=== PATIENT | male | born 2005 | race Caucasian/White ===

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

== ENCOUNTER 2024-03-31 10:24 | Day surgery (SDC) | payer BC, SELFPAY ==
[2024-03-31] VITALS (11 sets, daily range): BP systolic 108–130; BP diastolic 51–83; PULSE 67–94; RESP 12–16; TEMP 36.1–36.8; O2SAT 98–100; BMI 24.8
[2024-03-31] MEDS: Lactated Ringers 1,000 ML 15 ML IV (10:58)
--- NOTE | 2024-03-31 10:58 | HP.PCM_ITS ---
History and Physical Date of Admission: 03/31/24 Intake Vital Signs 04/25/2209:14 02/03/2414:21 Height 5 ft 11 in 5 ft 11 in Weight: 188 lb BMI 26.2 BP 108/69 Blood Pressure Location Rt brachial Position Sitting Respiration 17 Pulse 63 Pulse Source Monitor Pulse Oximetry (%) 95 Oxygen Delivery Method room air Intake Visit Reasons: inguinal hernia Chief Complaint: inguinal hernia Is patient in pain?: No Allergies No Known Allergies Allergy (Verified 02/04/24 14:22) Medications ?Medication ?Instructions ?Recorded ?Confirmed ?Type albuterol sulfate 90 mcg/actuation 1 - 2 puff inhalation Q4H PRN Sob 05/05/20 02/04/24 History aerosol inhaler &/Or Wheezing fluticasone propionate 50 1 spray NASAL DAILY PRN Allergies 05/05/20 02/04/24 History mcg/actuation nasal spray,suspension aspirin 81 mg tablet,delayed 81 mg PO DAILY 02/04/24 02/04/24 History release pantoprazole 20 mg tablet,delayed 10 mg PO DAILY 02/04/24 02/04/24 History release sacubitril 24 mg-valsartan 26 mg 1 tab PO BID 02/04/24 02/04/24 History tablet (Entresto) PFSH Medical History (Updated 02/06/24 @ 13:[address] Syed Patton MD) Acid reflux Cardiomyopathy Surgical History (Updated 02/04/24 @ 14:20 by Imelda Briceño) Hx of tonsillectomy Family History (Updated 02/04/24 @ 14:21 by Imelda Briceño) Mother Thyroid disorderGrandmother Heart disease Thyroid disorder Social History (Updated 02/04/24 @ 14:21 by Imelda Briceño) Smoking Status: Never smoker alcohol intake: never substance use type: does not use HPI HPI HPI: Patient is a 18-year-old male here with right groin bulging and pain. He says this has been going on for several weeks. He says it hurts really badly especially with any ejaculation. ROS General General: No weight change, appetite, fatigue, colon cancer, breast cancer or weakness HEENT HEENT: No difficulty swallowing, eye injury, eye surgery, swollen glands or hoarseness Endo Endocrine: No thyroid disease, diabetes mellitus, thyroid cancer, Hair loss, heat intolerance or cold intolerance Skin Skin: No rash or changing moles Musc Musculoskeletal: No back problems, arthritis, rheumatoid arthritis, gout or joint pain Cardio Cardiovascular: Yes heart disease; No murmur, pacemaker, atrial fibrillation, high blood pressure, heart attack, heart stent, palpitations, shortness of breat with exertion or chest pain Psych Psychiatric: No depression, anxiety or hearing voices Resp Respiratory: No shortness of breath, No sleep apnea, No cough, No COPD, Yes asthma, No emphysema and No wheezing Gastro Gastrointestinal: No abdominal pain, No nausea or vomiting, No diarrhea, No constipation, No blood in stool, Yes acid reflux, No hemorrhoids, No ulcers, No gallbladder problem and No black,tarry stools Kareem Hematologic: No blood thinners, No blood disorders, No bleeding, No anemia and No blood clots Neuro Neurologic: No system reviewed and no additional complaints, except as documented, No as per HPI, No abnormal gait, No abnormal hearing, No abnormal movements, No abnormal speech, No behavioral changes, No burning sensations, No confusion, No convulsions, No disequilibrium, No dizziness, No localized weakness, No frequent falls, No headache(s), No lack of coordination, No loss of vision, No memory loss, No numbness, No other visual disturbances, No radicular pain, No restless legs, No sensory deficit, No syncope, No tingling, No tremor(s), No weakness and No other Exam Const General: cooperative Orientation: alert and oriented x3 HENKY Head: normal to inspection Neck Neck: normal visual inspection and full ROM Chest Chest palpation & inspection: normal inspection of the chest Resp Effort & Inspection: normal respiratory effort Auscultation: clear to auscultation bilaterally Cardio Rate: regular rate Rhythm: regular rhythm GI Inspection: non-distended Palpation: soft, hernia indirect inguinal on the right and nontender Skin General: no rashes or lesions noted Neuro General: patient alert and patient oriented x3 Extrem General: full ROM Psych Appearance: grossly normal Mental Status: mental status grossly normal Assessment and Plan Assessment and Plan (1) Right inguinal hernia: Status: Acute Plan: Patient does have a reducible right inguinal hernia. I did not feel hernia on the opposite side. I discussed robotic assisted laparoscopic right inguinal hernia repair with mesh. I discussed the risks including but not limited to bleeding, infection, injury to underlying organs, injury to spermatic cord or the testicle itself, recurrence of hernia and mesh placement and mesh infection or chronic groin pain. Patient or stands all the risks and is willing to proceed. If there is a hernia on the opposite side he would like it fixed. 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 Syed Patton MD Pager: [facility] [address] [place] [address], [address] [place] [phone] Office: I have examined the patient and the H&P has been reviewed. There are no clinical changes since date of exam.
--- NOTE | 2024-03-31 11:25 | PRE.ANES_ITS ---
ASA Classification* ASA Classification ASA Classification: 2 Assessment & Plan Anesthesia* Anesthesia Assessment Anesthesia Assessment: Discussed sedation and/or anesthesia options, risks, benefits, and alternatives with patient/parents/legal guardian/POA. Questions invited. The patient/parents/legal guardian/POA seems to understand and agrees to proceed with anesthesia plan. Reviewed the physical assessment, medical history, allergy history and patient home medications list prior to surgery/procedure/anesthetic and documented any changes. Performed airway and anesthesia risk assessments. Anesthesia Type Anesthesia Type: General History Source History Obtained from:: Patient and Chart Anesthesia Focused Assessment* Temperature: 98 F Pulse Rate: 67 Blood Pressure: 129/81 Respiratory Rate: 16 Pulse Ox: 99 Oxygen Delivery Method: Room Air Airway Assessment Mouth opens: >3 cm Mallampati Score: II Teeth Condition: Intact (#8 Is bonded.) and Caps/Crowns Neck Range of motion (ROM): Full ROM Pertinent Findings EKG Pertinent Findings:: March 05, 2024. Normal sinus rhythm. Nonspecific intraventricular conduction delay. ECHO Pertinent Findings:: March 05, 2024. Ejection fraction is 51%. No change from previous study. Consults Pertinent Findings:: March 05, 2024. Dr. Cramer. Repeated echo is stable. Cardiac cleared for surgery. Focused Labs Anesthesia Preop lab: CBC WBC 6.9 K/mm3 (4.5-13.0) 05/14/20 13:14 RBC 5.12 M/mm3 (4.5-5.1) H 05/14/20 13:14 Hgb 16.4 g/dL (13.0-16.5) 05/14/20 13:14 Hct 45.9 % (36-47) 05/14/20 13:14 Plt Count 223 K/mm3 (150-450) 05/14/20 13:14 CHEMISTRY Potassium 3.7 mmol/L (3.5-5.1) 11/27/20 11:34 Sodium 139 mmol/L (136-145) 11/27/20 11:34 BUN 11 mg/dL (7-18) 11/27/20 11:34 Creatinine 0.94 mg/dL (0.70-1.30) 11/27/20 11:34 Glucose 85 mg/dL (74-106) 11/27/20 11:34 POC Glucose 95 mg/dL (70-110) 04/19/12 07:39 TSH 1.02 uIU/mL (0.358-3.74) 05/14/20 13:14 COAG Pre-Assessment Diagnosis/Proposed Procedure Planned Operative Procedure(s): LAP ROBOTIC RIGHT INGUINAL HERNIA WITH MESH POSS BILAT Anesthesia History 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 When Was Last Pacemaker Check QUESTION #4 FULL TEXT: You/Your Family Experience fever (hyperthermia) with Anesthesia Last Oral Intake Last Oral intake: Last Oral Intake NPO since 22:00 03/31/24 10:55 Meds taken in AM with sips of water? Meds patient instructed to take am of surgery PONV PONV - railway engineer: PONV - railway engineer Female No 03/03/24 09:03 HX of Motion Sickness Yes 03/03/24 09:03 HX of N/V After Surgery No 03/03/24 09:03 Non-Smoker Yes 03/03/24 09:03 Duration of Surgery greater No 03/03/24 09:03 than 60 minutes Number of Risk Factors 2 03/03/24 09:03 PONV Score Moderate Risk 03/03/24 09:03 Height & Weight Height & Weight: Anesthesia: Height & Weight Height 5 ft 11 in 03/31/24 10:55 Weight: 80.739 kg 03/31/24 10:55 Body Mass Index (BMI) 24.8 03/31/24 10:55 Respiratory Assessment Respiratory Assessment - railway engineer: Respiratory Tract Infection Hx - railway engineer Hx Respiratory Tract Infection No 03/03/24 09:03 STOP Sleep Apnea STOP Sleep Apnea - railway engineer: STOP Sleep Apnea - railway engineer Hx Hypertension No 03/03/24 09:03 Hx Sleep Apnea No 03/03/24 09:03 CPAP BIPAP Do you snore loudly (louder No 03/03/24 09:03 than talking or can be heard Do you often feel tired/ No 03/03/24 09:03 fatigued/ sleepy during daytime? Has anyone observed you stop No 03/03/24 09:03 breathing during sleep? STOP Results Negative 03/03/24 09:03 QUESTION #5 FULL TEXT : Do you snore loudly (louder than talking or can be heard through closed doors)? 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 Specify any problems Hx of Preganancy in last 3 N/A 03/03/24 09:03 Months Nurse Filling Out Transfusion DSCHRIBER 03/03/24 09:03 & Questions: Date: 03/03/24 03/03/24 09:03 Time: 09:05 03/03/24 09:03 Patient unable to answer at this time (ie. confused, unrespo /Reproduction History /Reproductive History - railway engineer: /Reproductive Hx- railway engineer Hx Now No 03/03/24 09:03 Gestational Age (in weeks): EDC: Hx Hx Para Hx Section SAB No 03/03/24 09:03 Active Medications Active Medications: Current Medications Generic Name Dose Route Start Last Admin Trade Name Freq PRN Reason Stop Dose Admin Cefazolin Sodium 2 gm/ Sodium 110 mls @ 150 mls/hr 03/31/24 12:00 Chloride IV 03/31/24 12:43 PREOP ONE Lactated Ringer's 1,000 mls @ 15 mls/hr 03/31/24 10:45 03/31/24 10:58 IV 15 mls/hr .Q48H WILMAN Administration PFSH Medical History Broken teeth Anxiety ADHD Injury of head and neck Syncope Hx of constipation Gastric reflux Non-smoker Asthma History of stress test History of echocardiogram Cardiology follow-up encounter Cardiomyopathy Home Medications ?Medication ?Instructions ?Recorded ?Last Taken ?Type albuterol sulfate 90 mcg/actuation 1 - 2 puff inhalation Q4H PRN Sob 05/05/20 Unknown History aerosol inhaler &/Or Wheezing fluticasone propionate 50 1 spray NASAL DAILY PRN Allergies 05/05/20 Unknown History mcg/actuation nasal spray,suspension aspirin 81 mg tablet,delayed 81 mg PO DAILY 02/04/24 03/24/24 History release pantoprazole 20 mg tablet,delayed 10 mg PO DAILY 02/04/24 Unknown History release sacubitril 24 mg-valsartan 26 mg 1 tab PO BID 02/04/24 Unknown History tablet (Entresto) atomoxetine 40 mg capsule 40 mg PO DAILY 03/03/24 Unknown History docusate sodium 100 mg capsule 100 mg PO DAILY 03/03/24 Unknown History Allergy/AdvReac Type Severity Reaction Status Date / Time No Known Allergies Allergy Verified 03/31/24 10:55 Family History Mother Thyroid disorder Grandmother Heart disease Thyroid disorder Surgical History Hx of tonsillectomy Social History Smoking Status: Never smoker alcohol intake: never substance use type: does not use Review of Systems (Anesthesia) ROS Narrative System reviewed and no additional complaints, except as documented.
[2024-03-31] MEDS: Cefazolin 2 GM in 0.9% Normal Saline (100mL Bag) 100 ML IV (11:54)
--- NOTE | 2024-03-31 12:00 | HERN_PTH ---
PATIENT: RANDALL MENDIETA [place] [facility] [place][id number] AGE/SX: 18/M ROOM: RE03/31/[address]: Dr. Syed Patton MD : 2005 BED: DIS: 03/31/2024 SPEC #: [id number] RECD: 03/31/24 18:26 STATUS: BOY PITO #: [id number] [place]: 03/31/24 12:[address]: Syed Patton DEPT: SURGICAL PATHOLOGY RECD BY: Paulino Soto ENTERED: 04/01/24 06:38 SP TYPE: Hernia OTHR DR: Dr. Shashi Yadav MD Tissues: HERNIA Procedures: Surgery Specimen Level II HEADER OPERATION: Robotic bilateral inguinal hernia repair with mesh PRE-OP DIAGNOSIS: Right inguinal hernia, bilateral inguinal hernias TISSUE SUBMITTED: Right inguinal hernia sac MICROSCOPIC DIAGNOSIS Right inguinal hernia sac: A piece of fibroadipose and fibroconnective tissue, consistent with hernia sac. / 04/02/2024 MICROSCOPIC DESCRIPTION Slides are reviewed. GROSS DESCRIPTION Received in fixative is one container labeled with the patient's name and designated Right inguinal hernia sac. The specimen consists of a piece of pink congested soft tissue measuring 4.0 x 3.0 x 1.0cm. No mass lesion is identified. Ticket Machine Operator sections are submitted in one cassette. / 04/01/2024 TC:5 CPT:64701
[2024-03-31] MEDS: Bupivacaine Mpf 0.5% 30 ML VIAL (13:29)
--- NOTE | 2024-03-31 13:44 | OP.PCM_ITS ---
Report of Operation Date of Procedure: 03/31/24 Pre-Operative Diagnosis: Right inguinal hernia Post-Operative Diagnosis: Bilateral inguinal hernias Surgery/Procedure Performed:: 1. Robotic assisted laparoscopic right inguinal hernia repair with mesh 2. Robotic assisted laparoscopic left inguinal hernia repair with mesh Type of Anesthesia: General/Regional Specimen's removed: Hernia sac from the right Estimated Blood Loss (mL): 20 Description of Procedure: Patient was brought back to the operating room and general anesthesia was induced. The abdomen was prepped and draped in usual sterile fashion. Midline incision was made superior to the umbilicus and the fascia was grasped and elevated. Veress needle was placed into the abdomen and drop test was perform ed. Abdomen was then insufflated to 15 mmHg. The Veress needle was removed and a port was placed. Camera placed into the abdomen and there were no injuries from entry. Patient was placed in Trendelenburg position. The right inguinal hernia was reduced with the patient had bilateral inguinal hernias. Next under direct visualization an 8 mm port was placed in the right lateral sidewall as well as left lateral sidewall. The robot was then docked. Using electrocautery dissection the peritoneum was opened in the right lower quadrant. Dissection was carried inferiorly until the hernia sac was encountered. The hernia sac was very difficult to dissect out of the scrotum. It was adherent to the testicle. After the distal end of the hernia sac was encountered and dissected free the hernia sac was dissected free backwards posteriorly until the entire hernia sac was free. The hernia sac was inverted into the abdomen. Next dissection was carried inferiorly. Hemostasis was obtained and then a large ProGrip mesh was placed over the inguinal defect and unfolded. There was good coverage of the hernia in all directions. Next the peritoneum was reapproximated using a running 3 oh V-Loc suture. The redundant hernia sac was resected and removed. The opening in the peritoneum was closed with [id number] 0 Vicryl suture. Next attention was plated to the left side. In similar fashion the peritoneum was incised using electrocautery scissors. Dissection was carried inferiorly. The hernia sac was encountered and dissected free. It also reached all the way into the scrotum to the testicle. The hernia sac was divided from its attachments and reduced. Next in the same fashion a ProGrip mesh was placed over the hernia defect and unfolded. The peritoneum was reapproximated using a running 3 OV lock suture. There was good coverage of both pieces of mesh with peritoneum at the end of the case. The robot was undocked and the abdomen was allowed to desufflate and the ports were removed. The incisions were injected with local anesthetic and closed with interrupted 4-0 Monocryl sutures and Steri-Strips and bandages were applied. Scrotum was checked at the case and contained both testicles. Patient was awoken and taken to PACU in stable condition and tolerated the procedure well. Grafts/Implants Used: ProGrip mesh bilateral inguinal regions Admit VTE Documentation VTE Mechan Device Prophylaxis: SCD's
--- NOTE | 2024-03-31 13:48 | EX.PCM.DISCH ---
Discharge Instructions Diet Discharge Diet: No restrictions Activity Discharge Activity: May Drive (in 2-3 days and after off narcotic medication) and May Shower (tomorrow over bandages) Lifting Restrictions: 15 lbs for 4 weeks Additional Activity Instructions:: Alternate ibuprofen and Tylenol for pain control, oxycodone for breakthrough pain. Dressing / Incision Call your doctor if your incision/area has: Continuous Slow Oozing, Sudden Increased Bleeding, Increased Pain/ Swelling, Increased Redness, Foul Smelling Discharge and Swelling at the incision site Call your doctor if you observe: Fever of 101 or Higher Remove Dressing in: 2 days (Remove clear bandages in 2 days, steri strips in 7-10 days) Cleanse incision/area with: Soap & Water Follow Up Care Please Follow Up With: Syed Patton MD When: Please call to schedule 2 week follow up appointment. [phone] Test Results: Test results from this visit will be discussed in further detail at your follow-up appointment, if applicable. Discharge Plan Admission Attending Provider: Syed Patton Primary Care Provider: Shashi Yadav Instructions Print Language: [place]ian Discharge Orders/Prescriptions Prescriptions: New oxycodone 5 mg Tablet 5 - 10 mg PO Q4H PRN PRN (Reason: Pain Score 4-10) 5 Days Qty: 20 0RF No Action Entresto 24-26 mg tablet 1 tab PO BID aspirin 81 mg tablet,delayed release (DR/EC) 81 mg PO DAILY pantoprazole 20 mg tablet,delayed release (DR/EC) 10 mg PO DAILY albuterol sulfate 90 mcg/actuation HFA aerosol inhaler 1 - 2 puff inhalation Q4H PRN (Reason: Sob &/Or Wheezing) fluticasone propionate 1 SPRAY spray,suspension 1 spray NASAL DAILY PRN (Reason: Allergies) docusate sodium 100 mg capsule 100 mg PO DAILY atomoxetine 40 mg capsule 40 mg PO DAILY Other Ambulatory Orders: Basic Metabolic Profile (BMP) (Routine) Timeframe: [id number] Facility: [facility] - Location: Laboratory Ordered By: Dr. Tristen Vences CBC-Complete Blood Cnt No Diff (Routine) Timeframe: [id number] Facility: [facility] - Location: Laboratory Ordered By: Dr. Tristen Vences Referrals / Follow Up: Shashi Yadav MD [Primary Care Provider] - Disposition Disposition (needs filled in before D/C Order can be placed): Home, Self Care
--- NOTE | 2024-03-31 13:55 | PCM.POST.ANE ---
Anesthesia: Postop Eval I Current Vital Signs Temperature: 98.2 F Pulse Rate: 88 Blood Pressure: 125/51 Respiratory Rate: 12 Pulse Ox: 99 Oxygen Delivery Method: Nasal Cannula Oxygen Flow Rate (L/min): 4 Assessment Airway patent: Yes Spontaneous unlabored respirations: Yes Mental status: Asleep nausea: No Vomiting: No Anesthesia Complication: Yes Anesthesia Complication Comment:: slow wake up, ROSMERY, OA placed to help maintain airway Fluid Hydration Crystalloid volume administer (ml): 1,600 Total IV fluid infused: 1,600 Progress Note Anesthesia document: Postop Eval 1 completed: Yes
[2024-03-31] MEDS: Acetaminophen 325 MG Tablet 650 MG PO (15:11)
--- NOTE | 2024-03-31 15:26 | PCM.POSTANE2 ---
Anesthesia Postop Eval I Sum Postop Eval Completion status Anesthesia document: Postop Eval 1 completed: Yes Anesthesia Postop Eval I Summary Anesthesia Postop Eval I Summary: Anesthesia Postop Eval I: Assessment Summary Airway patent Yes 03/31/24 14:07 [email or web address] Spontaneous unlabored Yes 03/31/24 14:07 [email or web address] respirations Mental status Asleep 03/31/24 14:07 [email or web address] nausea No 03/31/24 14:07 [email or web address] Vomiting No 03/31/24 14:07 [email or web address] Anesthesia Postop Eval I: Fluid Summary Crystalloid volume administer 1,600 03/31/24 14:07 [email or web address] (ml) Colloids volume administered ( ml) Blood Product volume administered (ml) Total IV fluid infused 1,600 03/31/24 14:07 [email or web address] Anesthesia Postop Eval I: Summary Notes Anesthesia Complication Yes 03/31/24 14:07 [email or web address] Anesthesia Complication slow wake up, ROSMERY, 03/31/24 14:07 [email or web address] Comment: OA placed to help maintain airway Post-operative progress note Anesthesia: Postop Eval II Evaluation Mental status: Awake and Calm Pain Level: 3 nausea: No Vomiting: No Complications Anesthesia Complication: No
[2024-03-31] MEDS: oxyCODONE 5 MG Tablet PO (16:06)
== END 2024-03-31 17:24 | disposition home or self-care (01) ==
LOC: SDC 10:26 → AC 10:27
PROVIDERS: PCP Pediatrics; Referring Provider Surgery; Visit Provider Surgery
PROC: (CPT 49650; principal; 2024-03-31 11:40)
DX: K40.20 Bilateral inguinal hernia, without obstruction or gangrene, not specified as recurrent (principal); Z79.82 Long term (current) use of aspirin; Z79.899 Other long term (current) drug therapy; J45.909 Unspecified asthma, uncomplicated; F90.9 Attention-deficit hyperactivity disorder, unspecified type; F41.9 Anxiety disorder, unspecified; K21.9 Gastro-esophageal reflux disease without esophagitis
CPT/HCPCS: 49650; S2900; 00840; 88302; J7120; J2405

== ENCOUNTER → 2025-01-02 | Outpatient (CLI) | payer BC, SELFPAY ==
[2025-01-02 17:46] LABS: Absolute Lymphocyte Count 2.28 X10^3/uL (0.83-4.51); Absolute Neutrophil Count 4.2 X10^3/uL (2.0-7.7); Basophil# 0.07 X10^3/uL; Basophil% 0.9 % (0-1); Eosinophil# 0.36 X10^3/uL; Eosinophils% 4.7 % (0-5); Hematocrit 44.1 % (40-54); Hemoglobin 16.3 g/dL (13.0-16.5); Lymphocyte # 2.28 X10^3/ul (0.83-4.51); Lymphocyte % 29.7 % (19-41); Mean Corpuscular Hgb 32.5 pg (27.0-32.0); Mean Platelet Vol. 11.6 fl (6.2-12.0); Monocyte# 0.77 X10^3/uL; NRBC Flagged by Analyzer 0 % (0-5); Neutrophil # 4.15 X10^3/uL (2.7-7.7); Neutrophil % 54.2 % (47-70); Platelet Count 226 K/mm3 (150-450); RBC Distribution Width CV 12.4 % (11.6-14.6); RBC Distribution Width SD 39.8 fl (35.1-43.9); Red Blood Count 5.01 M/mm3 (4.6-6.2); White Blood Count 7.7 K/mm3 (4.4-11.0)
[2025-01-02 18:45] LABS: Ferritin 531 ng/mL (37-417); Iron 193 ug/dL (65-175); Iron Binding Capacity,Unsat < 17 ug/dL (228-428)
== END | disposition home or self-care (01) ==
LOC: MTLAB 15:47
PROVIDERS: PCP Pediatrics; Referring Provider Pediatrics; Visit Provider Pediatrics
DX: F32.A Depression, unspecified (principal)
CPT/HCPCS: 36415; 82306; 82728; 83540; 83550; 84439; 84443; 85025